=== PATIENT | female | born 1995 | race Caucasian/White ===

== ENCOUNTER 2017-02-22 14:50 | Emergency (ER) | payer SELFPAY ==
[~2017-02-22] VITALS: Ht 162.6 cm; Wt 70.0 kg
[2017-02-22 14:52] VITALS: BP 134/77; PULSE 80; RESP 20; TEMP 98.7; O2SAT 98
--- NOTE | 2017-02-22 15:13 | PD ---
Physical Exam Time Seen by Provider: 15:13 Narrative 21 y/o female 4 weeks 5 days presents with vaginal spotting for one week. Vital signs reviewed. seen at triage desk. Awaiting bed placement. Data Data Last Documented VS Vital Signs Date Time Temp Pulse Resp B/P Pulse Ox O2 Delivery O2 Flow Rate FiO2 02/22/17 14:52 98.7 80 20 134/77 98 Room Air [facility] Medical Record Reviewed: Yes Supervised Visit with SHAWN: Hossein Schwartz Feb 22, 2017 15:13
[2017-02-22 18:45] VITALS: BP 122/69; PULSE 65; RESP 16; O2SAT 100
[2017-02-22] MEDS ORDERED: DOCO200C PO (19:07)
--- NOTE | 2017-02-22 19:15 | PD ---
HPI Chief Complaint: Related Problem Time Seen by Provider: 19:10 Travel History International Travel<30 days: No Contact w/Intl Traveler<30days: No Traveled to known affect area: No History of Present Illness HPI 21- year old 5- weeks female presents to the ED complaining of spotting since last . Patient reports that she di 4 home tests , and a [facility] her . She reports that the spotting has been light, however earlier today there was a little more and the blood was a little brighter. She reports some brownish/red vaginal discharge. She states she had no prior US. She denies any pain, nausea, vomiting, diarrhea, fevers, or chills. Patient could not remember her blood type. PFSH Past Medical History Tetanus Vaccination: < 5 Years Influenza Vaccination: No ?: LMP: 01/18/17 Social History Alcohol Use: No Tobacco Use: No Substance Use: No Allergies-Medications (Allergen,Severity, Reaction): Coded Allergies: No Known Allergies (Unverified , 02/22/17) Reported Meds & Prescriptions Reported Meds & Active Scripts Active Reported Dha (Docosahexaenoic Acid) 200 Mg Cap 1 Cap PO HS Review of Systems General / Constitutional: No: Fever, Chills, Weight Gain, Weight Loss, Other Eyes: No: Diploplia, Blurred Vision, Photophobia, Drainage, Redness, Foreign Body Sensation, Pain, Tearing, Blind Spots, Visual changes, Blindness, Other HENT: No: Headaches, Vertigo, Lightheadedness, Sore Throat, Rhinitis, Rhinorrhea, Congestion, Nosebleed, Neck Stiffness, Neck Pain, Masses, Gingival Bleeding, Dental Difficulties, Ear Discharge, Earache, Other Cardiovascular: No: Chest Pain or Discomfort, Palpitations, Irregular Rhythm, Tachycardia, Diaphoresis, Syncope, Dyspnea on exertion, Varicosities, Edema, Cyanosis, Varicosities, Phlebitis, Claudication, Other Respiratory: No: Cough, Shortness of Breath, Wheezing, Sneezing, Orthopnea, Hemoptysis, Stridor, Night Sweats, Pleuritic Pain, Other Gastrointestinal: No: Nausea, Vomiting, Diarrhea, Abdominal Pain, Hematemesis, Hematochezia, Constipation, Changes in Bowel Habits, Indigestion, Dysphagia, Loss of Appetite, Other Genitourinary: Positive: Vaginal Bleeding, No: Urgency, Frequency, Dysuria, Nocturia, Hematuria, Decreased Urinary Output, Oliguria, Hesitancy, Dribbling, Incontinence, Pelvic Pain, Flank Pain, Dyspareunia, Discharge, Dysmenorrhea, Menorrhagia, Metorrhagia, Other Musculoskeletal: No: Myalgias, Arthralgias, Limited ROM, Weakness, Cramping, Edema, Pain, Atrophy, Other Skin: No Rash, No Itching, No Dryness, No Lumps, No Hives, No Change in Pigmentation, No Change in nails, No Alopecia, No Lesions, No Breast Lumps, No Breast Tenderness, No Breast Swelling, No Other Neurologic: No: Weakness, Dizziness, Syncope, Focal Abnormalities, Coordination Problem, Tremor, Ataxia, Headache, Change in Mentation, Slurred Speech, Paresthesia, Incontinence, Seizures, Sensory Disturbance, Other Physical Exam Narrative GENERAL: SKIN: Warm and dry. HEAD: Atraumatic. Normocephalic. EYES: Pupils equal and round. No scleral icterus. No injection or drainage. ENT: No nasal bleeding or discharge. Mucous membranes pink and moist. NECK: Trachea midline. No JVD. CARDIOVASCULAR: Regular rate and rhythm. No S3, S4, murmurs, rubs, gallops, or clicks. RESPIRATORY: No accessory muscle use. Clear to auscultation. Breath sounds equal bilaterally. GASTROINTESTINAL: Abdomen soft, non-tender, nondistended. Hepatic and splenic margins not palpable. MUSCULOSKELETAL: Extremities without clubbing, cyanosis, or edema. No obvious deformities. NEUROLOGICAL: Awake and alert. No obvious cranial nerve deficits. Motor grossly within normal limits. Five out of 5 muscle strength in the arms and legs. Normal speech. PSYCHIATRIC: Appropriate mood and affect; insight and judgment normal. Data Data Last Documented VS Vital Signs Date Time Temp Pulse Resp B/P Pulse Ox O2 Delivery O2 Flow Rate FiO2 02/22/17 18:45 65 16 122/69 100 Room Air 02/22/17 14:52 98.7 Orders Gc And Chlamydia Pcr (02/22/17 18:42) Wet Prep Profile (02/22/17 18:42) Urinalysis - C+S If Indicated (02/22/17 18:42) Ed Urine Pregnancytest Poc (02/22/17 18:42) Us Pelvis (Ques Pr/Ect)W Trans (02/22/17 ) Type And Screen (02/22/17 19:02) Beta Hcg (Quant/Titer) (02/22/17 20:19) Labs Laboratory Tests Test 02/22/17 19:00 Urine Color LIGHT-YELLOW Urine Turbidity CLEAR Urine pH 7.0 Urine Specific [place] 1.004 Urine Protein NEG mg/dL Urine Glucose (UA) NEG mg/dL Urine Ketones NEG mg/dL Urine Occult Blood NEG Urine Nitrite NEG Urine Bilirubin NEG Urine Urobilinogen LESS THAN 2.0 MG/DL Urine Leukocyte Esterase NEG Urine RBC 1 /hpf Urine WBC LESS THAN 1 /hpf Urine Squamous Epithelial <1 /hpf Cells Microscopic Urinalysis Comment CULT NOT INDICATED MDM Medical Decision Making Medical Screen Exam Complete: Yes Emergency Medical Condition: Yes Medical Record Reviewed: Yes Differential Diagnosis Ectopic Bleeding during Vaginitis Narrative Course 21-year-old female that presents to the ED for evaluation of spotting. Patient was properly examined and was found to have signs and symptoms which appear to be consistent with vaginal bleeding. Patient is . Labs and imaging were ordered. Case will be signed out to my attending pending imaging and laboratory. Tian Colón Feb 22, 2017 19:15
[2017-02-22 20:11] LABS: BLOOD, URINE NEG (NEG); GLUCOSE,URINE NEG (NEG); KETONE, URINE NEG (NEG); NITRITE,URINE NEG (NEG); SQUAMOUS EPITHELIAL CELL URINE <1 /hpf (0-5); URINE COLOR LIGHT-YELLOW (YELLW/STRAW)
[2017-02-22 20:13] LABS: COMMENT (UR) CULT NOT INDICATED; CULTURE IF INDICATED CULT NOT INDICATED
[2017-02-22 21:18] LABS: BETA HCG QUANT 212 MIU/ML (0-5)
--- NOTE | 2017-02-22 21:47 | RADRPT ---
EXAM DATE/TIME: 02/22/2017 19:46 [facility] COMPARISON: No previous studies available for comparison. INDICATIONS : Bleeding with . LAB(S): Beta-hC MEDICAL HISTORY : . SURGICAL HISTORY : None. ENCOUNTER: Initial ACUITY: 1 week PAIN SCORE: LOCATION: Bilateral pelvis MEASUREMENTS: UTERUS: 7.7 x 4.1 x 3.2 cm ENDOMETRIAL STRIPE: 11 mm RIGHT OVARY: 3.3 x 1.6 x 1.9 cm LEFT OVARY: 3.0 x 2.5 x 2.5 cm FREE FLUID: No FINDINGS: UTERUS: The myometrium has homogeneous echotexture without mass. The endometrium is thick and has a fairly ho mogeneous echotexture. A gestational sac is not identified. 6 mm nabothian cyst. RIGHT OVARY: Ovary contains no mass or significant cystic lesion. LEFT OVARY: Ovary contains no mass or significant cystic lesion. MISCELLANEOUS: No free fluid. CONCLUSION: Thickened endometrium without gestational sac. No evidence of free fluid. Intrauterine ca nnot be confirmed and an ectopic cannot be excluded on the basis of this scan. Yariel Arias MD on February 22, 2017 at 21:43 Board Certified Radiologist. This report was verified electronically.
[2017-02-22 22:28] LABS: CHLAMYDIA PCR NOT DETECTED (NOT DETECT); NEISSERIA PCR NOT DETECTED (NOT DETECT)
--- NOTE | 2017-02-22 22:33 | PD ---
Physical Exam Date Seen by Provider: Feb 22, 2017 Data Data Last Documented VS Vital Signs Date Time Temp Pulse Resp B/P Pulse Ox O2 Delivery O2 Flow Rate FiO2 02/22/17 18:45 65 16 122/69 100 Room Air 02/22/17 14:52 98.7 Orders Gc And Chlamydia Pcr (02/22/17 18:42) Wet Prep Profile (02/22/17 18:42) Urinalysis - C+S If Indicated (02/22/17 18:42) Ed Urine Pregnancytest Poc (02/22/17 18:42) Us Pelvis (Ques Pr/Ect)W Trans (02/22/17 ) Type And Screen (02/22/17 19:02) Beta Hcg (Quant/Titer) (02/22/17 20:19) Labs Laboratory Tests Test 02/22/17 02/22/17 19:00 20:50 Urine Color LIGHT-YELLOW Urine Turbidity CLEAR Urine pH 7.0 Urine Specific [place] 1.004 Urine Protein NEG mg/dL Urine Glucose (UA) NEG mg/dL Urine Ketones NEG mg/dL Urine Occult Blood NEG Urine Nitrite NEG Urine Bilirubin NEG Urine Urobilinogen LESS THAN 2.0 MG/DL Urine Leukocyte Esterase NEG Urine RBC 1 /hpf Urine WBC LESS THAN 1 /hpf Urine Squamous Epithelial <1 /hpf Cells Microscopic Urinalysis Comment CULT NOT INDICATED Chlamydia trachomatis DNA NOT DETECTED (PCR) Neisseria gonorrhoeae DNA NOT DETECTED (PCR) Blood Type O POSITIVE Antibody Screen NEGATIVE Blood Bank Comment Clue Cells (Wet Prep) NONE SEEN Vaginal Trichomonas (Wet Prep) NONE SEEN Vaginal Yeast (Wet Prep) NONE SEEN Human Chorionic Gonadotropin, 212 MIU/ML Quant MDM Medical Record Reviewed: Yes Supervised Visit with SHAWN: Yes Interpretation(s) Vital Signs Date Time Temp Pulse Resp B/P Pulse Ox O2 Delivery O2 Flow Rate FiO2 02/22/17 18:45 65 16 122/69 100 Room Air 02/22/17 14:52 98.7 80 20 134/77 98 Room Air Laboratory Tests Test 02/22/17 02/22/17 19:00 20:50 Urine Color LIGHT-YELLOW (YELLW/STRAW) Urine Turbidity CLEAR (CLEAR) Urine pH 7.0 (5.0-8.5) Urine Specific [place] 1.004 (1.002-1.035) Urine Protein NEG mg/dL (NEG-TRACE) Urine Glucose (UA) NEG mg/dL (NEG) Urine Ketones NEG mg/dL (NEG) Urine Occult Blood NEG (NEG) Urine Nitrite NEG (NEG) Urine Bilirubin NEG (NEG) Urine Urobilinogen LESS THAN 2.0 MG/DL (LESS THAN 2.0) Urine Leukocyte Esterase NEG (NEG) Urine RBC 1 /hpf (0-3) Urine WBC LESS THAN 1 /hpf (0-5) Urine Squamous Epithelial <1 /hpf (0-5) Cells Microscopic Urinalysis Comment CULT NOT INDICATED Chlamydia trachomatis DNA NOT DETECTED (PCR) (NOT DETECT) Neisseria gonorrhoeae DNA NOT DETECTED (PCR) (NOT DETECT) Blood Type O POSITIVE Antibody Screen NEGATIVE Blood Bank Comment Clue Cells (Wet Prep) NONE SEEN (NONE) Vaginal Trichomonas (Wet Prep) NONE SEEN (NONE) Vaginal Yeast (Wet Prep) NONE SEEN (NONE) Human Chorionic Gonadotropin, 212 MIU/ML Quant (0-5) Last Impressions Pelvis Ultrasound 02/22/17 0000 Signed Impressions: Service Date/Time: February 19:46 - CONCLUSION: Thickened endometrium without gestational sac. No evidence of free fluid. Intrauterine cannot be confirmed and an ectopic cannot be excluded on the basis of this scan. Yariel Arias MD Narrative Course 21 year old female who is who thinks that she is 5 weeks , presents to ER with c/o of irregular vaginal spotting since last . She did have a confirmed by the health department, reports concern for possible miscarriage Last Impressions Pelvis Ultrasound 02/22/17 0000 Signed Impressions: Service Date/Time: February 19:46 - CONCLUSION: Thickened endometrium without gestational sac. No evidence of free fluid. Intrauterine cannot be confirmed and an ectopic cannot be excluded on the basis of this scan. Yariel Arias MD HCG quant 212 US: no confirmed IUP - ectopic vs miscarriage versus early vaginal bleeding with cannot be excluded. a copy of her lab work and studies were given to her at discharge. 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
== END 2017-02-22 23:08 | disposition home or self-care (01) ==
LOC: NEPD 14:50
DX: O20.0 Threatened abortion (principal); O23.591 Infection of other part of genital tract in pregnancy, first trimester; N76.0 Acute vaginitis; Z3A.01 Less than 8 weeks gestation of pregnancy
CPT/HCPCS: 76700; 76817; 81001; 84702; 84703; 86850; 86900; 86901; 87210; 87491; 87591; 99284

== ENCOUNTER 2017-02-25 10:08 | Emergency (ER) | payer OTHER ==
[~2017-02-25] VITALS: Ht 162.6 cm; Wt 68.0 kg
[~2017-02-25 10:08] MED LIST: DOCO200C PO
[2017-02-25 10:09] VITALS: BP 134/79; PULSE 79; RESP 15; TEMP 98.2; O2SAT 98
--- NOTE | 2017-02-25 10:45 | PD ---
HPI Chief Complaint: Related Problem Time Seen by Provider: 10:15 Travel History International Travel<30 days: No Contact w/Intl Traveler<30days: No Traveled to known affect area: No History of Present Illness HPI 21 year-old woman, primigravida, at about 5 weeks , here for repeat hCG. Had some bleeding and cramping 2 days ago, had a beta-hCG that was in the 200s, ultrasound that showed empty uterus. She still having some bleeding. No cramping. Otherwise feeling well. History Past Medical History Medical History: Denies Significant Hx LMP: JANUARY 18, 2017 Social History Alcohol Use: No Tobacco Use: No Allergies-Medications (Allergen,Severity, Reaction): Coded Allergies: No Known Allergies (Unverified , 02/22/17) Reported Meds & Prescriptions Reported Meds & Active Scripts Active Reported Dha (Docosahexaenoic Acid) 200 Mg Cap 1 Cap PO HS Review of Systems Except as stated in HPI: all other systems reviewed are Neg Physical Exam Narrative GENERAL: Well-appearing 21 year-old woman, no acute distress. SKIN: Focused skin assessment warm/dry. CARDIOVASCULAR: Warm and well perfused. RESPIRATORY: Normal rate and effort. GASTROINTESTINAL: Abdomen soft, non-tender, nondistended. Hepatic and splenic margins not palpable. MUSCULOSKELETAL: No obvious deformities. Data Data Last Documented VS Vital Signs Date Time Temp Pulse Resp B/P Pulse Ox O2 Delivery O2 Flow Rate FiO2 02/25/17 10:09 98.2 79 15 134/79 98 Orders Beta Hcg (Quant/Titer) (02/25/17 10:15) Labs Laboratory Tests Test 02/25/17 10:25 Human Chorionic Gonadotropin, 335 MIU/ML Quant MDM Medical Decision Making Medical Screen Exam Complete: Yes Emergency Medical Condition: Yes Interpretation(s) HCG 212 -> 335 Differential Diagnosis Threatened AB, intrauterine , miscarriage, ectopic Narrative Course Medical decision-making 21-year-old here for repeat hCG. She had an increasing 212-335. This is nonspecific. Ectopic is still consideration. She needs repeat hCG and ultrasound in 48 hours. I think it's too early to repeat the ultrasound now and expect to see something different. She does not have an OB to follow up with. Diagnosis Primary Impression: Miscarriage, threatened, early Departure Forms: Tests/Procedures, Work Release Enter return to work date: Feb 28, 2017 Additional Instructions: Return to the emergency department in 48 hours for repeat hCG and repeat ultrasound. Return to the emergency department sooner for any significant abdominal or pelvic pain, or any other new or worsening symptoms. Med/Other Pt SpecificInfo: No Change to Meds Disposition: 01 DISCHARGE HOME Condition: Stable Baljinder Ellison MD Feb 25, 2017 10:45
[2017-02-25 11:00] LABS: BETA HCG QUANT 335 MIU/ML (0-5)
== END 2017-02-25 12:13 | disposition home or self-care (01) ==
LOC: NEPD 10:08
DX: O20.0 Threatened abortion (principal); Z3A.00 Weeks of gestation of pregnancy not specified
CPT/HCPCS: 84702; 99283

== ENCOUNTER 2017-02-27 07:39 | Emergency (ER) | payer OTHER ==
[~2017-02-27] VITALS: Ht 162.6 cm; Wt 68.5 kg
[2017-02-27 07:40] VITALS: BP 146/72; PULSE 102; RESP 15; TEMP 98.3; O2SAT 98
[2017-02-27] MEDS ORDERED: SODIUM CHLOR 0.9% 1000 ML INJ 1,000 ML IV SCH (09:37)
--- NOTE | 2017-02-27 09:37 | PD ---
HPI Chief Complaint: Related Problem Time Seen by Provider: 09:27 Travel History International Travel<30 days: No Contact w/Intl Traveler<30days: No Traveled to known affect area: No History of Present Illness HPI Patient is a 21-year-old female who is primagada at 5 weeks, presents to ER for repeat pelvic US as well as HCG quant. Patient reports that throughout her , she has had vaginal bleeding and abdominal cramping. Patient was seen on February 22, 2017, hCG Quant at that time was 212, patient was also seen on February 25, 2017 and hCG quant was 335. Patient reports that she continues to have irregular vaginal bleeding, denies any clots. Patient was told to return to the emergency room for pelvic ultrasound as well as an hCG Quant. [facility] Past Medical History ?: LMP: 01/18/17 Past Surgical History Surgical History: No Previous Surgery Social History Alcohol Use: No Tobacco Use: No Substance Use: No Allergies-Medications (Allergen,Severity, Reaction): Coded Allergies: No Known Allergies (Unverified , 02/27/17) Reported Meds & Prescriptions Reported Meds & Active Scripts Active No Active Prescriptions or Reported Medications Review of Systems General / Constitutional: No: Fever Eyes: No: Visual changes HENT: No: Headaches Cardiovascular: No: Chest Pain or Discomfort Respiratory: No: Shortness of Breath Gastrointestinal: No: Abdominal Pain Genitourinary: Positive: Vaginal Bleeding, No: Dysuria Musculoskeletal: No: Pain Skin: No Rash Neurologic: No: Weakness Psychiatric: No: Depression Endocrine: No: Polydipsia Hematologic/Lymphatic: No: Easy Bruising Physical Exam Narrative GENERAL: No acute distress, nontoxic SKIN: Focused skin assessment warm/dry. HEAD: Atraumatic. Normocephalic. EYES: Pupils equal and round. No scleral icterus. No injection or drainage. ENT: No nasal bleeding or discharge. Mucous membranes pink and moist. NECK: Trachea midline. No JVD. CARDIOVASCULAR: Regular rate and rhythm. No murmur appreciated. RESPIRATORY: No accessory muscle use. Clear to auscultation. Breath sounds equal bilaterally. GASTROINTESTINAL: Abdomen soft, non-tender, nondistended. Hepatic and splenic margins not palpable. MUSCULOSKELETAL: No obvious deformities. No clubbing. No cyanosis. No edema. NEUROLOGICAL: Awake and alert. No obvious cranial nerve deficits. Motor grossly within normal limits. Normal speech. PSYCHIATRIC: Appropriate mood and affect; insight and judgment normal. Data Data Last Documented VS Vital Signs Date Time Temp Pulse Resp B/P Pulse Ox O2 Delivery O2 Flow Rate FiO2 02/27/17 11:00 97.8 86 16 128/81 99 Room Air Orders Beta Hcg (Quant/Titer) (02/27/17 09:31) Complete Blood Count With Diff (02/27/17 09:31) Us Pelvis (Ques Pr/Ect)W Trans (02/27/17 ) Urinalysis - C+S If Indicated (02/27/17 09:31) Iv Access Insert/Monitor (02/27/17 09:37) Sodium Chlor 0.9% 1000 Ml Inj (Ns 1000 M (02/27/17 09:37) Sodium Chloride 0.9% Flush (Ns Flush) (02/27/17 09:45) Labs Laboratory Tests Test 02/27/17 02/27/17 09:11 10:40 Urine Color YELLOW Urine Turbidity HAZY Urine pH 7.5 Urine Specific [place] 1.025 Urine Protein TRACE mg/dL Urine Glucose (UA) NEG mg/dL Urine Ketones NEG mg/dL Urine Occult Blood MOD Urine Nitrite NEG Urine Bilirubin NEG Urine Urobilinogen LESS THAN 2.0 MG/DL Urine Leukocyte Esterase NEG Urine RBC LESS THAN 1 /hpf Urine WBC 1 /hpf Urine Amorphous Sediment RARE Urine Bacteria RARE /hpf Urine Mucus FEW /lpf Microscopic Urinalysis Comment CULT NOT INDICATED Human Chorionic Gonadotropin, 229 MIU/ML Quant White Blood Count 6.5 TH/MM3 Red Blood Count 4.36 MIL/MM3 Hemoglobin 12.8 GM/DL Hematocrit 38.8 % Mean Corpuscular Volume 89.1 FL Mean Corpuscular Hemoglobin 29.4 PG Mean Corpuscular Hemoglobin 33.0 % Concent Red Cell Distribution Width 13.0 % Platelet Count 205 TH/MM3 Mean Platelet Volume 9.9 FL Neutrophils (%) (Auto) 66.6 % Lymphocytes (%) (Auto) 25.3 % Monocytes (%) (Auto) 7.0 % Eosinophils (%) (Auto) 0.8 % Basophils (%) (Auto) 0.3 % Neutrophils # (Auto) 4.3 TH/MM3 Lymphocytes # (Auto) 1.7 TH/MM3 Monocytes # (Auto) 0.5 TH/MM3 Eosinophils # (Auto) 0.1 TH/MM3 Basophils # (Auto) 0.0 TH/MM3 CBC Comment DIFF FINAL Differential Comment MDM Medical Decision Making Medical Screen Exam Complete: Yes Emergency Medical Condition: Yes Interpretation(s) Vital Signs Date Time Temp Pulse Resp B/P Pulse Ox O2 Delivery O2 Flow Rate FiO2 02/27/17 07:40 98.3 102 15 146/72 98 Differential Diagnosis Differential includes miscarriage, early , threatened , ectopic Narrative Course 21-year-old female who is primigravida, presents to emergency room for repeat blood work as well as hCG Quant. Patient reports that she has been having irregular vaginal bleeding throughout her , she is about 5 weeks and does not have an FILLING LAYER UP. hCG quant on 02/22/17: 212 hCG quant on 02/25/17: 335 Repeat hCG Quant ordered as well as pelvic ultrasound. Repeat hcg quant today 229 Last Impressions Pelvis Ultrasound 02/27/17 0000 Signed Impressions: Service Date/Time: Monday, February 27, 2017 11:46 - CONCLUSION: 1. No gestational sac identified. 2. No significant changes compared to the prior exam of 02/22/2017. 3. Continue with serial beta-hCGs. Eliseo Norwood MD Patient with most likely spontaneous miscarriage. I did give patient a copy of her lab work as well as her ultrasound report. She is to trend her hCG Quant, she is to follow up with natural resource manager. patient will need repeat hcg quant to trend until it is 0. Discussed concerns for spontaneous miscarriage given her decreasing hCG quant Diagnosis Primary Impression: Miscarriage, threatened, early Additional Impression: Spontaneous miscarriage Referrals: [facility] Patient Instructions: General Instructions Additional Instructions: please provide patient with a copy of her lab work and US report at discharge* * Your hCG quant was 229 today which has decreased from 02/25/17 (HCG quant 335) Please have your hCG quant repeated Please follow up with your natural resource manager as soon as possible - bring a copy of your lab work and US report to your office visit Return to ER as needed Scripts No Active Prescriptions or Reported Meds Disposition: DISCHARGE HOME Condition: Stable Sonia Howard DO Feb 27, 2017 09:37
[2017-02-27] MEDS ORDERED: SODIUM CHLORIDE 0.9% FLUSH 10 ML FLUSH IV FLUSH PRN (09:45)
[2017-02-27 10:42] LABS: BETA HCG QUANT 229 MIU/ML (0-5)
[2017-02-27 10:52] LABS: BACTERIA, URINE RARE /hpf; BLOOD, URINE MOD (NEG); COMMENT (UR) CULT NOT INDICATED; CULTURE IF INDICATED CULT NOT INDICATED; GLUCOSE,URINE NEG (NEG); KETONE, URINE NEG (NEG); MUCUS URINE FEW /lpf (OCC); NITRITE,URINE NEG (NEG); PH, URINE 7.5 (5.0-8.5); URINE COLOR YELLOW (YELLW/STRAW)
[2017-02-27 11:00] VITALS: BP 128/81; PULSE 86; RESP 16; TEMP 97.8; O2SAT 99
[2017-02-27 11:15] LABS: AUTOMATED NEUTROPHIL # 4.3 TH/MM3 (1.8-7.7); BASOPHIL % 0.3 % (0.0-2.0); EOSINOPHIL # 0.1 TH/MM3 (0-0.4); EOSINOPHIL % 0.8 % (0.0-4.0); HEMATOCRIT 38.8 % (35.0-46.0); HEMO FLAGS DIFF FINAL; LYMPH % 25.3 % (9.0-44.0); LYMPHOCYTE # 1.7 TH/MM3 (1.0-4.8); MEAN CELL VOLUME 89.1 FL (80.0-100.0); MEAN CORPUSCULAR HEMOGLOBIN 29.4 PG (27.0-34.0); NEUT % 66.6 % (16.0-70.0); PLATELET COUNT 205 TH/MM3 (150-450); RED BLOOD COUNT 4.36 MIL/MM3 (4.00-5.30); WHITE BLOOD COUNT 6.5 TH/MM3 (4.0-11.0)
--- NOTE | 2017-02-27 12:47 | RADRPT ---
EXAM DATE/TIME: 02/27/2017 11:46 [facility] COMPARISON: US PELVIS (QUEST PREG/ECTOPIC) W/TRANSVAG, February 22, 2017, 19:46. INDICATIONS : Bleeding with . LAB(S): Beta-hC02/22/2017=212. 02/25/2017=335. 02/27/2017=229 MEDICAL HISTORY : . SURGICAL HISTORY : None. ENCOUNTER: Subsequent ACUITY: 2 weeks PAIN SCORE: 1/10 LOCATION: Bilateral pelvis MEASUREMENTS: UTERUS: 8.2 x 3.9 x 3.2 cm ENDOMETRIAL STRIPE: 14 mm RIGHT OVARY: 3.3 x 2.6 x 2.0 cm LEFT OVARY: 2.8 x 2.3 x 2.0 cm FREE FLUID: No CROWN RUMP LENGTH: Not visualized = WKS DAYS FINDINGS: UTERUS: The myometrium has homogeneous echotexture without mass. The endometrial cavity is empty. No gestati onal sac is demonstrated. No significant changes are seen compared to the prior study. Small nabothia n cyst on the cervix measuring 5 mm which is stable. RIGHT OVARY: Ovary contains no mass or significant cystic lesion. LEFT OVARY: Ovary contains no mass or significant cystic lesion. MISCELLANEOUS: No free fluid. CONCLUSION: 1. No gestational sac identified. 2. No significant changes compared to the prior exam of 02/22/2017. 3. Continue with serial beta-hCGs. Eliseo Norwood MD on February 27, 2017 at 12:43 Board Certified Radiologist. This report was verified electronically.
[2017-02-27 13:17] VITALS: BP 120/77; TEMP 97.8
== END 2017-02-27 13:17 | disposition home or self-care (01) ==
LOC: NEPD 07:39
DX: O03.9 Complete or unspecified spontaneous abortion without complication (principal); Z3A.01 Less than 8 weeks gestation of pregnancy
CPT/HCPCS: 76700; 76817; 81001; 84702; 85025; 96360; 99285; J7030